=== PATIENT | male | born 1970 | race Caucasian/White ===

== ENCOUNTER 2023-01-07 13:01 | Inpatient (IN) | payer OTHER ==
[2023-01-07 13:52] VITALS: BMI 23.6
[2023-01-07] MEDS ORDERED: ACETAMINOPHEN 325 MG TABLET (FP) PO ONE (14:57)
[2023-01-07] MEDS ORDERED: ACETAMINOPHEN 325 MG TABLET (FP) ONE (15:23)
[2023-01-07 17:04] LABS: BASO % 1.9 % (0-2.0); EOS % 3.1 % (0-4.5); HEMOGLOBIN 12.7 GM/dL (11.7-16.9); MCH 29.8 pg (25.7-33.7); MCHC 32.5 g/dl (32.0-35.9); MEAN CELL VOLUME 91.5 fl (80-96); MEAN PLT VOLUME 8.7 fl (7.5-11.1); MONO % 11.7 % (3.8-10.2); NEUT % 40.3 % (42.8-82.8); PLATELET COUNT 312 10^3/uL (134-434); RBC 4.26 M/mm3 (4.00-5.60); RDW 17.2 % (11.9-15.9); WHITE BLOOD COUNT 5.7 K/mm3 (4.0-10.0)
[2023-01-07 17:29] LABS: POTASSIUM 4.1 mmol/L (3.5-5.1)
[2023-01-07 17:31] LABS: CALCIUM 8.4 mg/dL (8.5-10.1)
[2023-01-07 17:32] LABS: ALBUMIN 3.3 g/dl (3.4-5.0); BLOOD UREA NITROGEN 16.4 mg/dL (7-18)
[2023-01-07 17:37] LABS: BILIRUBIN,TOTAL 0.5 mg/dL (0.2-1); TOT PROT 6.6 g/dl (6.4-8.2)
[2023-01-07 17:38] LABS: CREATININE 0.7 mg/dL (0.55-1.3)
[2023-01-07] MEDS ORDERED: NICOTINE 7 MG/24 HOURS TOPICAL PATCH TD ONE (18:16)
[2023-01-07] MEDS: NICOTINE 7 MG/24 HOURS TOPICAL PATCH TD SCH (18:21)
[2023-01-07] MEDS ORDERED: ACETAMINOPHEN 325 MG TABLET (FP) PO PRN (20:38)
[2023-01-07] MEDS ORDERED: PANTOPRAZOLE 20 MG TABLET PO ONE ×2 (20:42→21:39)
[2023-01-07] MEDS ORDERED: LIDOCAINE 5% TOPICAL PATCH TP ONE (21:27)
[2023-01-07] MEDS ORDERED: ENOXAPARIN NA (PORCINE) 40 MG/0.4 ML DISP.SYRIN SQ ONE (21:39)
[2023-01-07] MEDS: ENOXAPARIN NA (PORCINE) 40 MG/0.4 ML DISP.SYRIN SQ SCH (21:41)
[2023-01-07] MEDS ORDERED: LIDOCAINE 5% TOPICAL PATCH ONE (21:42)
[2023-01-07] MEDS ORDERED: LIDOCAINE PATCH REMOVAL MC SCH (22:00)
[2023-01-08] MEDS ORDERED: BUPRENORPHINE/NALOXONE 8 MG/2 MG FILM PACKET ONE ×2 (01:15→07:51)
[2023-01-08] MEDS: BUPRENORPHINE/NALOXONE 8 MG/2 MG FILM PACKET SL SCH ×4 (01:19→21:24)
[2023-01-08 08:00] VITALS: RESP 18
[2023-01-08 08:04] LABS: BASO % 1.3 % (0-2.0); EOS % 3.9 % (0-4.5); HEMATOCRIT 40.2 % (35.4-49); HEMOGLOBIN 13.1 GM/dL (11.7-16.9); LYMPH % 38.8 % (8-40); MCH 29.8 pg (25.7-33.7); MCHC 32.5 g/dl (32.0-35.9); MEAN CELL VOLUME 91.9 fl (80-96); MEAN PLT VOLUME 8.4 fl (7.5-11.1); PLATELET COUNT 307 10^3/uL (134-434); RBC 4.37 M/mm3 (4.00-5.60); RDW 17.5 % (11.9-15.9); WHITE BLOOD COUNT 6.4 K/mm3 (4.0-10.0)
[2023-01-08 08:11] LABS: POTASSIUM 5.1 mmol/L (3.5-5.1)
[2023-01-08 08:19] LABS: CALCIUM 8.6 mg/dL (8.5-10.1)
[2023-01-08 08:20] LABS: ALBUMIN 2.8 g/dl (3.4-5.0); BLOOD UREA NITROGEN 14.9 mg/dL (7-18)
[2023-01-08 08:23] LABS: CREATININE 0.6 mg/dL (0.55-1.3)
[2023-01-08 08:25] LABS: BILIRUBIN,TOTAL 0.4 mg/dL (0.2-1)
[2023-01-08] MEDS: ENOXAPARIN NA (PORCINE) 40 MG/0.4 ML DISP.SYRIN SQ SCH (09:54)
[2023-01-08] MEDS: NICOTINE 7 MG/24 HOURS TOPICAL PATCH TD SCH (11:48)
[2023-01-08] MEDS: LIDOCAINE 5% TOPICAL PATCH TP SCH (11:48)
[2023-01-08] MEDS ORDERED: LIDOCAINE PATCH REMOVAL MC SCH (22:00)
[2023-01-09] MEDS: BUPRENORPHINE/NALOXONE 8 MG/2 MG FILM PACKET SL SCH (05:27)
[2023-01-09] MEDS: LIDOCAINE 5% TOPICAL PATCH TP SCH (10:15)
[2023-01-09] MEDS: NICOTINE 7 MG/24 HOURS TOPICAL PATCH TD SCH (10:16)
[2023-01-09] MEDS: ENOXAPARIN NA (PORCINE) 40 MG/0.4 ML DISP.SYRIN SQ SCH (10:16)
[2023-01-09 12:05] VITALS: BP 110/68; PULSE 88; TEMP 98.5
== END 2023-01-09 12:15 | disposition other institution (70) | DRG 347 ==
LOC: JER 13:01 → JERBED 19:19 → OBSVTOIN 20:38 → J8W 01-08 10:18
PROVIDERS: ADMIT Internal Medicine
DX: S12.200A Unspecified displaced fracture of third cervical vertebra, initial encounter for closed fracture (principal); F11.20 Opioid dependence, uncomplicated; M53.2X2 Spinal instabilities, cervical region; F19.10 Other psychoactive substance abuse, uncomplicated; M54.2 Cervicalgia; I10 Essential (primary) hypertension; E78.5 Hyperlipidemia, unspecified; Z59.00 Homelessness unspecified; F32.9 Major depressive disorder, single episode, unspecified; V03.99XA Pedestrian with other conveyance injured in collision with car, pick-up truck or van, unspecified whether traffic or nontraffic accident, initial encounter; Y92.488 Other paved roadways as the place of occurrence of the external cause
CPT/HCPCS: 36415; 71046-TC-FY; 72050-TC-FY; 80053; 84484; 85025; 87635; 93005; 93010; 99285-25; G0378

== ENCOUNTER 2023-09-17 13:12 | Inpatient (IN) | payer OTHER ==
[2023-09-17 17:18] VITALS: BMI 28.2
[2023-09-17] MEDS ORDERED: methaDONE HCL 10 MG TABLET (FOR DETOX USE ONLY) PO ONE (19:38)
[2023-09-17] MEDS ORDERED: LOPERAMIDE HCL 2 MG CAPSULE PO PRN (20:10)
[2023-09-17] MEDS ORDERED: NALOXONE HCL (KLOXXADO) 8 MG SPRAY NS PRN (20:10)
[2023-09-17] MEDS ORDERED: DICYCLOMINE HCL 10 MG CAPSULE PO PRN (20:10)
[2023-09-17] MEDS ORDERED: MAGNESIUM HYDROX 2400MG/30ML ORAL SUSPENSION 30 ML CUP PO PRN (20:10)
[2023-09-17] MEDS ORDERED: BENZOCAINE/MENTHOL (CHLORASEPTIC ) LOZENGE MM PRN (20:10)
[2023-09-17] MEDS ORDERED: MAG HYDROX/AL HYDROX/SIMETH 30 ML UNIT-DOSE CUP PO PRN (20:10)
[2023-09-17] MEDS ORDERED: ONDANSETRON *ODT* 4 MG TABLET SL PRN (20:10)
[2023-09-17] MEDS ORDERED: guaiFENesin 600 MG TABLET.ER (FP) PO PRN (20:10)
[2023-09-17] MEDS ORDERED: BENZONATATE 200 MG CAPSULE PO PRN (20:10)
[2023-09-17] MEDS ORDERED: NALOXONE HCL 0.4 MG/ML VIAL IM PRN (20:10)
[2023-09-17] MEDS ORDERED: BISMUTH SUBSALICYLATE 524 MG/30 ML PO PRN (20:10)
[2023-09-17] MEDS ORDERED: ACETAMINOPHEN 325 MG TABLET (FP) PO PRN (20:10)
[2023-09-17] MEDS ORDERED: POLYETHYLENE GLYCOL (HEALTHYLAX) 3350 17 GM PACKET PO PRN (20:10)
[2023-09-17] MEDS ORDERED: IBUPROFEN 400 MG TABLET (FP) PO PRN (20:10)
[2023-09-17] MEDS: methaDONE HCL 10 MG TABLET (FOR DETOX USE ONLY) PO ONE (20:59)
[2023-09-17] MEDS: THIAMINE 100 MG TABLET PO SCH (22:25)
[2023-09-17] MEDS: MELATONIN 5 MG TABLETS PO SCH (22:25)
[2023-09-17] MEDS: BUPRENORPHINE/NALOXONE 0.5 MG/0.125 MG FILM SL ONE (22:27)
[2023-09-17] MEDS: cloNIDine HCL 0.1 MG TABLET PO SCH (22:27)
[2023-09-18] MEDS: PRENATAL VITAMINS W/ FOLIC ACID TABLET (FP) PO SCH (10:12)
[2023-09-18] MEDS: BUPRENORPHINE/NALOXONE 0.5 MG/0.125 MG FILM SL SCH (10:13)
[2023-09-18 11:44] LABS: HEMATOCRIT 40.8 % (35.4-49); HEMOGLOBIN 13.7 GM/dL (11.7-16.9); MCH 30.4 pg (25.7-33.7); MCHC 33.5 g/dl (32.0-35.9); MEAN CELL VOLUME 90.8 fl (80-96); MEAN PLT VOLUME 10.3 fl (7.5-11.1); PLATELET COUNT 163 10^3/uL (134-434); RBC 4.49 M/mm3 (4.00-5.60); WHITE BLOOD COUNT 6.3 K/mm3 (4.0-10.0)
[2023-09-18 11:45] LABS: CHLORIDE 105 mmol/L (98-107); POTASSIUM 4.1 mmol/L (3.5-5.1); SODIUM 139 mmol/L (136-145)
[2023-09-18 11:53] LABS: CALCIUM 8.6 mg/dL (8.5-10.1)
[2023-09-18 11:54] LABS: ANION GAP 4 mmol/L (4-13); BLOOD UREA NITROGEN 14.3 mg/dL (7-18); CO2 31 mmol/L (21-32); GLUCOSE,RANDOM 88 mg/dL (74-106)
[2023-09-18 11:57] LABS: CREATININE 0.8 mg/dL (0.55-1.3); SGOT/AST 20 U/L (15-37); SGPT/ALT 28 U/L (13-61)
[2023-09-18 11:59] LABS: BILIRUBIN,TOTAL 0.9 mg/dL (0.2-1); TOT PROT 5.5 g/dl (6.4-8.2)
[2023-09-18 12:00] LABS: ALK PHOS 85 U/L (45-117)
[2023-09-18] MEDS: hydrOXYzine PAMOATE 25 MG CAPSULE (FP) PO PRN (19:20)
[2023-09-18] MEDS: NICOTINE POLACRILEX 2 MG GUM BUC PRN (22:10)
[2023-09-19] MEDS: METHOCARBAMOL 500 MG TABLET PO PRN (04:28)
[2023-09-19] MEDS: methaDONE HCL 10 MG TABLET (FOR DETOX USE ONLY) PO ONE (09:22)
[2023-09-19] MEDS: BUPRENORPHINE/NALOXONE 2 MG/0.5 MG FILM PACKET SL SCH (09:23)
[2023-09-19] MEDS: IBUPROFEN 600 MG TABLET (FP) PO PRN (17:14)
[2023-09-19] MEDS: diazePAM 5 MG TABLET PO PRN (17:38)
[2023-09-20] MEDS: NICOTINE 14 MG/24 HOURS TOPICAL PATCH TD SCH (10:11)
[2023-09-20] MEDS: BUPRENORPHINE/NALOXONE 4 MG/1 MG FILM PACKET SL SCH (10:12)
[2023-09-20] MEDS ORDERED: SUVOREXANT 10 MG TABLET PO PRN (22:00)
[2023-09-21] MEDS: methaDONE HCL 10 MG TABLET (FOR DETOX USE ONLY) PO ONE (09:40)
[2023-09-21] MEDS: BUPRENORPHINE/NALOXONE 8 MG/2 MG FILM PACKET SL SCH (09:41)
[2023-09-21 09:45] VITALS: RESP 18
[2023-09-21] MEDS: SUVOREXANT 5 MG TABLET PO PRN (22:00)
[2023-09-22 10:16] VITALS: BP 150/85; PULSE 69; TEMP 98.7
[2023-09-22] MEDS: BUPRENORPHINE/NALOXONE 8 MG/2 MG FILM PACKET SL SCH (10:16)
== END 2023-09-22 10:30 | disposition home or self-care (01) | DRG 773 ==
LOC: YASAS 13:12 → Y3N 19:48
PROVIDERS: ADMIT Allergy & Immunology; ATTEND Surgery
PROC: HZ2ZZZZ Detoxification Services for Substance Abuse Treatment (ICD-10-PCS; principal; 2023-09-17)
DX: F11.23 Opioid dependence with withdrawal (principal); F14.20 Cocaine dependence, uncomplicated; F12.20 Cannabis dependence, uncomplicated; F17.210 Nicotine dependence, cigarettes, uncomplicated; F17.290 Nicotine dependence, other tobacco product, uncomplicated; F19.282 Other psychoactive substance dependence with psychoactive substance-induced sleep disorder; F19.24 Other psychoactive substance dependence with psychoactive substance-induced mood disorder; F41.0 Panic disorder [episodic paroxysmal anxiety]; F41.9 Anxiety disorder, unspecified; F32.A Depression, unspecified; Z21 Asymptomatic human immunodeficiency virus [HIV] infection status; I25.10 Atherosclerotic heart disease of native coronary artery without angina pectoris; I10 Essential (primary) hypertension; K21.9 Gastro-esophageal reflux disease without esophagitis; Z86.39 Personal history of other endocrine, nutritional and metabolic disease; Z56.0 Unemployment, unspecified; Z59.02 Unsheltered homelessness
CPT/HCPCS: 36415; 80053; 80305; 80307; 85027; 86780; 93005; 93010

== ENCOUNTER 2024-07-28 02:23 | Emergency (ER) | payer OTHER ==
[2024-07-28 02:30] VITALS: BP 113/47; PULSE 63; RESP 18; TEMP 98.3; BMI 23.3
== END 2024-07-28 03:38 | disposition home or self-care (01) ==
LOC: JER 02:23
DX: F11.13 Opioid abuse with withdrawal (principal)
CPT/HCPCS: 99283-25; 99285-25

== ENCOUNTER 2024-08-03 10:10 | Inpatient (IN) | payer OTHER ==
[2024-08-03 10:42] VITALS: BMI 27.7
[2024-08-03] MEDS ORDERED: BISMUTH SUBSALICYLATE 524 MG/30 ML PO PRN (11:40)
[2024-08-03] MEDS ORDERED: BENZOCAINE/MENTHOL (CHLORASEPTIC ) LOZENGE MM PRN (11:40)
[2024-08-03] MEDS ORDERED: MAG HYDROX/AL HYDROX/SIMETH 30 ML UNIT-DOSE CUP PO PRN (11:40)
[2024-08-03] MEDS ORDERED: ONDANSETRON *ODT* 4 MG TABLET SL PRN (11:40)
[2024-08-03] MEDS ORDERED: POLYETHYLENE GLYCOL (HEALTHYLAX) 3350 17 GM PACKET PO PRN (11:40)
[2024-08-03] MEDS ORDERED: ACETAMINOPHEN 325 MG TABLET (FP) PO PRN (11:40)
[2024-08-03] MEDS ORDERED: NICOTINE POLACRILEX 2 MG LOZENGE BC PRN (11:40)
[2024-08-03] MEDS ORDERED: NALOXONE (NARCAN) HCL 4 MG/0.1 ML SPRAY NS PRN (11:40)
[2024-08-03] MEDS ORDERED: DICYCLOMINE HCL 10 MG CAPSULE PO PRN (11:40)
[2024-08-03] MEDS ORDERED: MAGNESIUM HYDROX 2400MG/30ML ORAL SUSPENSION 30 ML CUP PO PRN (11:40)
[2024-08-03] MEDS ORDERED: guaiFENesin 600 MG TABLET.ER (FP) PO PRN (11:40)
[2024-08-03] MEDS ORDERED: IBUPROFEN 400 MG TABLET (FP) PO PRN (11:40)
[2024-08-03] MEDS ORDERED: LOPERAMIDE HCL 2 MG CAPSULE PO PRN (11:40)
[2024-08-03] MEDS ORDERED: NICOTINE POLACRILEX 2 MG GUM BUC PRN (11:40)
[2024-08-03] MEDS ORDERED: BENZONATATE 200 MG CAPSULE PO PRN (11:40)
[2024-08-03] MEDS: BUPRENORPHINE/NALOXONE 8 MG/2 MG FILM PACKET SL SCH (13:04)
[2024-08-03] MEDS: diazePAM 5 MG TABLET PO PRN (17:42)
[2024-08-03] MEDS: BUPRENORPHINE/NALOXONE 4 MG/1 MG FILM PACKET SL SCH (18:26)
[2024-08-03] MEDS: hydrOXYzine PAMOATE 25 MG CAPSULE (FP) PO PRN (21:23)
[2024-08-03] MEDS: THIAMINE 100 MG TABLET PO SCH (21:23)
[2024-08-03] MEDS: METHOCARBAMOL 500 MG TABLET PO PRN (21:23)
[2024-08-03] MEDS: MELATONIN 5 MG TABLETS PO SCH (21:23)
[2024-08-03] MEDS: IBUPROFEN 600 MG TABLET (FP) PO PRN (22:45)
[2024-08-04] MEDS: PRENATAL VITAMINS W/ FOLIC ACID TABLET (FP) PO SCH (09:49)
[2024-08-04 11:06] LABS: HEMATOCRIT 46.6 % (40.1-51.0); HEMOGLOBIN 14.8 g/dL (13.7-17.5); MCHC 31.8 g/dl (32.3-36.5); MEAN CELL VOLUME 93.2 fl (79.0-92.2); MEAN PLT VOLUME 11.8 fl (9.4-12.4); PLATELET COUNT 214 x10^3/uL (163-337); RDW 14.3 % (12.2-16.1)
[2024-08-04 11:14] LABS: POTASSIUM 4.4 mmol/L (3.5-5.1)
[2024-08-04 11:22] LABS: ALBUMIN 3.2 g/dl (3.4-5.0); BLOOD UREA NITROGEN 10.1 mg/dL (7-18); CALCIUM 8.5 mg/dL (8.5-10.1)
[2024-08-04 11:25] LABS: CREATININE 0.6 mg/dL (0.55-1.3)
[2024-08-04 11:27] LABS: BILIRUBIN,TOTAL 0.6 mg/dL (0.2-1); TOT PROT 5.8 g/dl (6.4-8.2)
[2024-08-05 05:33] VITALS: TEMP 97.6
[2024-08-05] MEDS: BUPRENORPHINE/NALOXONE 8 MG/2 MG FILM PACKET SL ONE (05:42)
[2024-08-05 09:23] VITALS: BP 112/64; PULSE 63; RESP 18
== END 2024-08-05 10:30 | disposition home or self-care (01) | DRG 773 ==
LOC: YASAS 10:10 → Y3N 12:41
PROVIDERS: ADMIT Allergy & Immunology; ATTEND Allergy & Immunology
PROC: HZ2ZZZZ Detoxification Services for Substance Abuse Treatment (ICD-10-PCS; principal; 2024-08-03)
DX: F11.23 Opioid dependence with withdrawal (principal); F14.20 Cocaine dependence, uncomplicated; F12.20 Cannabis dependence, uncomplicated; F17.210 Nicotine dependence, cigarettes, uncomplicated; F41.9 Anxiety disorder, unspecified; M19.90 Unspecified osteoarthritis, unspecified site; M54.50 Low back pain, unspecified; G89.29 Other chronic pain
CPT/HCPCS: 36415; 80053; 80305; 80307; 85027; 86780; 93005; 93010